=== PATIENT | female | born 1995 ===

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

== ENCOUNTER 2017-12-28 09:24 | Emergency (ER) | payer SELFPAY ==
[2017-12-28] MEDS ORDERED: Ondansetron ODT TAB* 4 MG PO ONE (09:56)
--- NOTE | 2017-12-28 09:56 | UC ---
Abdominal Pain Female HPI - HPI Summary HPI Summary: patient to the urgent care this morning with chief complaint of nausea vomiting and diarrhea. She had 3 episodes of vomiting this morning and 1 episode of diarrhea. She reports drinking 3 shots of alcohol last night and is concerned about the SH she ate yesterday with chicken. She denies fever - History of Current Complaint Chief Complaint: UCAbdominalPain Stated Complaint: STOMACH ACHE/VOMITING Time Seen by Provider: 12/28/17 09:45 Hx Obtained From: Patient Hx Last Menstrual Period: 12/10/17 ?: No Onset/Duration: Sudden Onset Timing: Constant Severity Initially: Moderate Severity Currently: Moderate Pain Intensity: 8 Pain Scale Used: 0-10 Numeric Location: Diffuse, Suprapubic Radiates: No Character: Aching, Cramping Aggravating Factor(s): Nothing Alleviating Factor(s): Nothing Associated Signs and Symptoms: Positive: Nausea, Vomiting, Diarrhea Allergies/Adverse Reactions: Allergies Allergy/AdvReac Type Severity Reaction Status Date / Time No Known Allergies Allergy Verified 12/28/17 09:41 Home Medications: Home Medications Weight Loss Drops 12/28/17 [History] PMH/Surg Hx/FS Hx/Imm Hx Previously Healthy: Yes - Surgical History Surgical History: None - Family History Known Family History: Positive: Diabetes Negative: Cardiac Disease, Hypertension - Social History Occupation: Student Lives: Dormitory/Roommates Alcohol Use: Rare Substance Use Type: Marijuana Substance Use Comment - Amount & Last Used: occasional use last used yesterday Smoking Status (MU): Never Smoked Tobacco Review of Systems Constitutional: Negative Skin: Negative Eyes: Negative ENT: Negative Respiratory: Negative Cardiovascular: Negative Gastrointestinal: Abdominal Pain, Vomiting, Diarrhea, Nausea Genitourinary: Negative Motor: Negative Neurovascular: Negative Musculoskeletal: Negative Neurological: Negative Psychological: Negative Is Patient Immunocompromised?: No All Other Systems Reviewed And Are Negative: Yes Physical Exam Triage Information Reviewed: Yes Appearance: No Pain Distress, Well-Nourished, Ill-Appearing - mild Vital Signs: Initial Vital Signs Temp 98.1 F 12/28/17 09:35 Pulse 92 12/28/17 09:35 Resp 18 12/28/17 09:35 BP 114/75 12/28/17 09:35 Pulse Ox 98 12/28/17 09:35 Vital Signs Reviewed: Yes Eye Exam: Normal Eyes: Positive: Conjunctiva Clear ENT Exam: Normal ENT: Positive: Normal ENT inspection, Hearing grossly normal. Negative: Nasal congestion, Trismus, Muffled voice, Hoarse voice Dental Exam: Normal Neck exam: Normal Neck: Positive: 1 Respiratory Exam: Normal Respiratory: Positive: Chest non-tender, No respiratory distress, No accessory muscle use Cardiovascular Exam: Normal Cardiovascular: Positive: RRR, Pulses Normal, Brisk Capillary Refill Abdominal Exam: Normal Abdomen Description: Positive: No Organomegaly, Soft, Other: - Diffuse lower abdominal and suprapubic discomfort. Negative: CVA Tenderness (R), CVA Tenderness (L) Bowel Sounds: Positive: Present Musculoskeletal Exam: Normal Musculoskeletal: Positive: Strength Intact, ROM Intact, No Edema Neurological Exam: Normal Neurological: Positive: Alert, Muscle Tone Normal Psychological Exam: Normal Skin Exam: Normal Diagnostics - Laboratory Diagnostic Studies Completed/Ordered: UA +1 ketones +1 protein trace lysed blood , U negative Re-Evaluation - Re-Evaluation First Eval Change: Improved - Feels better after Zofran taking by mouth fluids well we'll DC with close follow-up as needed Abd Pain Female Course/Dx - Course Course Of Treatment: Rest advance clear liquids slowly Zofran when necessary follow up with [facility] return here or emergency department for continued or worsening pain - Differential Dx/Diagnosis Provider Diagnoses: Acute nausea vomiting diarrhea Discharge - Sign-Out/Discharge Documenting (check all that apply): Discharge/Admit/Transfer - Discharge Plan Condition: Stable Disposition: HOME Prescriptions: Ondansetron [Zofran Odt] 4 mg PO Q6H PRN #4 tab PRN Reason: nausea Patient Education Materials: Clear Liquid Diet (ED), Acute Nausea and Vomiting (ED) [facility] [[facility] - If Needed - Billing Disposition and Condition Condition: STABLE Disposition: HOME
[2017-12-28] MEDS ORDERED: Ibuprofen TAB* 600 MG PO ONE (10:42)
[2017-12-28 10:55] VITALS: BP 114/75
== END 2017-12-28 10:49 | disposition home or self-care (01) ==
LOC: UCCORT 09:24
DX: R11.2 Nausea with vomiting, unspecified (principal); R19.7 Diarrhea, unspecified
CPT/HCPCS: 81003; 84702; 99212; A9270-GY; G0463

== ENCOUNTER 2018-12-22 11:15 | Emergency (ER) | payer SELFPAY | END 2018-12-22 11:36 | disposition left against medical advice (07) | LOC: UCCORT 11:15 | DX: Z53.21 Procedure and treatment not carried out due to patient leaving prior to being seen by health care provider (principal) ==

== ENCOUNTER 2019-11-04 09:22 | Emergency (ER) | payer SELFPAY ==
[2019-11-04 10:28] VITALS: BP 109/71
--- NOTE | 2019-11-04 10:47 | UC ---
Complaint Female HPI - HPI Summary HPI Summary: 24-year-old female who has had some urinary frequency over the past 2 days and today she noted some redness to her urine. She states over the past 2 weeks she has noted some foul-smelling odor which she is not sure if that is vaginal or from her urine. She did have some mild vaginal itching however no abnormal discharge. No recent use of antibiotics. She is sexually active with one person and no history of sexually transmitted diseases. - History Of Current Complaint Chief Complaint: UCGU Stated Complaint: URINARY Time Seen by Provider: 11/04/19 10:17 Hx Obtained From: Patient Hx Last Menstrual Period: 10/22/2019 ?: No Onset/Duration: Gradual Onset, Lasting Days Timing: Intermittent Severity Initially: Mild Severity Currently: Mild Pain Intensity: 0 Aggravating Factor(s): Urination Alleviating Factor(s): Nothing Associated Signs And Symptoms: Positive: Vaginal Discharge - Some clear vaginal discharge which she states is no different than normal. - Allergies/Home Medications Allergies/Adverse Reactions: Allergies Allergy/AdvReac Type Severity Reaction Status Date / Time No Known Allergies Allergy Verified 11/04/19 10:24 Home Medications: Home Medications Sulfamethox/Trimethoprim DS* [Bactrim DS 800/160 TAB*] 1 tab PO BID 5 Days #10 tab 11/04/19 [Rx] PMH/Surg Hx/FS Hx/Imm Hx Previously Healthy: Yes - Surgical History Surgical History: None - Family History Known Family History: Positive: Diabetes Negative: Cardiac Disease, Hypertension - Social History Alcohol Use: Weekly Substance Use Type: Marijuana Substance Use Comment - Amount & Last Used: Daily Smoking Status (MU): Never Smoked Tobacco Review of Systems All Other Systems Reviewed And Are Negative: Yes Genitourinary: Positive: Hematuria - Patient noted pink color to her urine today., Frequency, Vaginal/Penile Itching - She had some vaginal itching for a couple of days however that has resolved. No recent antibiotic usage., Vaginal/ Penile Discharge - She has had some clear vaginal discharge which she states is no different than normal. Is Patient Immunocompromised?: No Physical Exam Triage Information Reviewed: Yes Appearance: Well-Appearing, No Pain Distress, Well-Nourished Vital Signs: Initial Vital Signs Temp 98.5 F 11/04/19 10:22 Pulse 70 11/04/19 10:22 Resp 16 11/04/19 10:22 BP 109/71 11/04/19 10:22 Pulse Ox 100 11/04/19 10:22 Vital Signs Reviewed: Yes Respiratory: Positive: Lungs clear, Normal breath sounds, No respiratory distress, No accessory muscle use Cardiovascular: Positive: RRR, No Murmur, Pulses Normal, Brisk Capillary Refill Abdomen Description: Positive: Nontender, No Organomegaly, Soft. Negative: CVA Tenderness (R), CVA Tenderness (L), Distended, Guarding, Hepatomegaly, Splenomegaly Bowel Sounds: Positive: Present Musculoskeletal Exam: Normal Neurological Exam: Normal Psychological Exam: Normal Skin Exam: Normal Complaint Female Dx - Course Course Of Treatment: Urinalysis: Positive for leukocytes, positive for blood. Urine test: Negative I'm going to treat the patient for urinary tract infection and she is also going to obtain a vaginal self-swab for AFFIRM testing. - Differential Dx/Diagnosis Provider Diagnosis: UTI (urinary tract infection) Discharge ED - Sign-Out/Discharge Documenting (check all that apply): Patient Departure All imaging exams completed and their final reports reviewed: No Studies - Discharge Plan Condition: Good Disposition: HOME Prescriptions: Sulfamethox/Trimethoprim DS* [Bactrim DS 800/160 TAB*] 1 tab PO BID 5 Days #10 tab Patient Education Materials: Urinary Tract Infection in Women (DC) Referrals: Non Staff,Doctor [Medical Doctor] - JENNIFER ELLER [[employer], [employer], OTHER] - Additional Instructions: Increase fluids, take the Bactrim with food, follow-up at the [facility] in 3-4 days if no improvement. We will call you if the vaginal cultures come back positive - Billing Disposition and Condition Condition: GOOD Disposition: Home
--- NOTE | 2019-11-06 07:13 | UC ---
- Progress Note Progress Note: please call the pt. vaginal culture + for BV will call in Flagyl 500 mg bid x 7 days Course/Dx - Diagnoses Provider Diagnoses: UTI (urinary tract infection) Discharge ED - Sign-Out/Discharge Documenting (check all that apply): Patient Departure All imaging exams completed and their final reports reviewed: No Studies - Discharge Plan Condition: Good Disposition: HOME Prescriptions: metroNIDAZOLE [Flagyl 500 MG TAB] 500 mg PO BID #14 tab Sulfamethox/Trimethoprim DS* [Bactrim DS 800/160 TAB*] 1 tab PO BID 5 Days #10 tab Patient Education Materials: Urinary Tract Infection in Women (DC) Referrals: Non Staff,Doctor [Medical Doctor] - JENNIFER ELLER [[employer], [employer], OTHER] - Additional Instructions: Increase fluids, take the Bactrim with food, follow-up at the [facility] in 3-4 days if no improvement. We will call you if the vaginal cultures come back positive - Billing Disposition and Condition Condition: GOOD Disposition: Home
== END 2019-11-04 10:57 | disposition home or self-care (01) ==
LOC: UCCORT 09:22
DX: N39.0 Urinary tract infection, site not specified (principal); R31.9 Hematuria, unspecified
CPT/HCPCS: 81003; 84702; 87077; 87086; 87186; 87480; 87510; 87660; 99212; G0463